=== PATIENT | female | born 1975 | race Caucasian/White ===

== ENCOUNTER → 2024-05-21 12:23 | Outpatient (BNVA) | payer BC, SELFPAY | PROVIDERS: PCP Nurse Practitioner Family; Referring Provider Nurse Practitioner Family; Visit Provider Psychiatry & Neurology Neurology | DX: G62.9 Polyneuropathy, unspecified (principal); G25.81 Restless legs syndrome; G47.00 Insomnia, unspecified; E55.9 Vitamin D deficiency, unspecified; M54.50 Low back pain, unspecified; R29.898 Other symptoms and signs involving the musculoskeletal system; R20.2 Paresthesia of skin; M79.601 Pain in right arm; M79.602 Pain in left arm; Z79.899 Other long term (current) drug therapy | CPT/HCPCS: 36415; 82306; 82550; 82746; 83735; 83921; 84132 ==

== ENCOUNTER 2024-08-23 13:00 | Outpatient (CLI) | payer BC, SELFPAY ==
--- NOTE | 2024-08-23 13:00 | MR_ITS ---
WS: [id number] MRI LUMBAR SPINE WITH AND WITHOUT CONTRAST HISTORY: G62.9 - Polyneuropathy, unspecified COMPARISON: None available. TECHNIQUE: Sagittal and axial multisequence imaging is submitted. Normal lumbar alignment with no compression fractures or marrow edema. Disc spaces and vertebral body heights are well-preserved. Conus terminates normally at L1-2 disc level. L1-L2: Very slight asymmetric disc bulging to the RIGHT. No high-grade stenosis. L2-L3: Mild annular disc bulge with a central disc protrusion. Mild facet arthritis. Mild central and bilateral foraminal stenosis. L3-L4: Mild annular disc bulging with ligamentum flavum and facet arthritis. No central disc protrusi ons. Mild bilateral foraminal stenosis. L4-L5: Mild bilateral facet joint arthritis and ligamentum flavum hypertrophy. Mild bilateral foramin al stenosis. L5-S1: Mild annular disc bulging and facet arthritis. Paravertebral soft tissues are normal. No discitis or osteomyelitis. No enhancing masses. Normal appearance of the nerve roots. MR/MR lumbar spine wo/w con [id number] IMPRESSION: 1. No high-grade central or foraminal stenosis. 2. Mild bilateral foraminal stenosis from L2-3 through L4-5 and facet joint ar thritis. 3. Small central disc protrusion at L2-3 contributing to mild central stenosis .
[2024-08-23] MEDS: gadobenate dimeglumine 20 mL vial IV (14:36)
== END 2024-08-23 13:08 | disposition home or self-care (01) ==
PROVIDERS: PCP Nurse Practitioner Family; Visit Provider Psychiatry & Neurology Neurology
DX: G62.9 Polyneuropathy, unspecified (principal); M51.26 Other intervertebral disc displacement, lumbar region
CPT/HCPCS: 72158; A9577